=== PATIENT | female | born 1965 | race Caucasian/White ===

== ENCOUNTER 2018-01-22 15:00 | Inpatient (IN) ==
[2018-01-22] MEDS ORDERED: ONDANSETRON 4 MG/2 ML INJECTION IVP ONE (15:07)
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
[2018-01-22] MEDS ORDERED: SALINE FLUSH 10ml SYRINGE IVF PRN (15:40)
[2018-01-22] MEDS: NS 1,000 ML IV SCH ×2 (15:41→17:34)
[2018-01-22 16:42] VITALS: BMI 24.0
[2018-01-22] MEDS ORDERED: WARFARIN - PHARMACY CONSULT MC ONE (16:44)
[2018-01-22] MEDS ORDERED: ACETAMINOPHEN 325 MG TABLET PO PRN (16:45)
[2018-01-22] MEDS ORDERED: ENOXAPARIN 120 MG/0.8 ML INJECTION SQ SCH (16:45)
[2018-01-22] MEDS ORDERED: ONDANSETRON 4 MG/2 ML INJECTION IVP PRN (16:45)
[2018-01-22] MEDS ORDERED: SENNA + DOCUSATE TABLET PO PRN (16:45)
[2018-01-22] MEDS ORDERED: ACETAMINOPHEN 650 MG SUPPOSITORY PR PRN (16:45)
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
[2018-01-22] MEDS ORDERED: FALL RISK - PHARMACY CONSULT MC ONE (17:00)
[2018-01-22] MEDS: 1/2 NS 1,000 ML IV SCH (17:09)
[2018-01-22] MEDS ORDERED: METOPROLOL 5mg/5ml INJECTION IVP PRN (17:11)
[2018-01-22] MEDS: LEVETIRACETAM INJ 500 MG in NS 100 ML IV SCH ×2 (17:31→20:08)
[2018-01-22] MEDS: ENOXAPARIN 150 MG/ML INJECTION SQ SCH (17:37)
[2018-01-22] MEDS ORDERED: WARFARIN 2.5 MG TABLET PO ONE (18:02)
[2018-01-23] MEDS: ENOXAPARIN 150 MG/ML INJECTION SQ SCH ×2 (06:02→17:20)
[2018-01-23] MEDS: 1/2 NS 1,000 ML IV SCH (06:40)
--- NOTE | 2018-01-23 07:31 | XRay Report ---
Indication: seizure, leukocytosis PROCEDURE: XR chest 1V: Encounter: Initial Comparison: None FINDINGS: The lungs are clear. There is no abnormal airspace opacity, pleural effusion or pneumothorax identified. The cardiac silhouette is mildly enlarged. Prior sternotomy and cardiac valve replacement. The pulmonary vasculature and mediastinum are within normal limits. No significant skeletal abnormality is seen. IMPRESSION: No acute pneumonia or congestive failure. Mild enlargement of the cardiac silhouette could be due to cardiomegaly or pericardial effusion. .
--- NOTE | 2018-01-23 07:35 | CT Scan Report ---
Indication: New seizure, on coumadin PROCEDURE: CT head/brain wo con: Encounter: Initial Comparison: October 31, 2015 Technique: Axial CT images through the head were performed without contrast. Iterative Reconstruction dose reducing technique was utilized. FINDINGS: Encephalomalacia in the left frontal lobe and anterior left temporal lobe. The ventricles are of normal size, shape, and contour for the patient's age. There are scattered areas of low attenuation in the white matter which most likely represent changes from chronic microvascular ischemia. The brainstem, cerebellum, and cerebral hemispheres otherwise have a normal morphology and CT attenuation. There is no evidence of midline displacement. No hemorrhage, signs of acute territorial stroke, mass effect, mass lesions, or edema is evident. The visualized portions of the skull base, midface, and calvarium demonstrate no abnormality. Moderate mucosal thickening in the paranasal sinuses with an air-fluid level in the right sphenoid. The tympanic and mastoid cavities appear normal. IMPRESSION: No acute intracranial abnormality or hemorrhage. Sinusitis. There is a preliminary report by [facility]. .
[2018-01-23] MEDS: LEVETIRACETAM INJ 500 MG in NS 100 ML IV SCH ×2 (08:25→21:22)
--- NOTE | 2018-01-23 09:08 | Pharmacy Consult ---
Pharmacy Consult-Warfarin - Laboratory Information 01/22/18 01/22/18 01/22/18 15:17 15:17 15:17 Hgb 10.3 L Hct 34.3 L INR 1.99 H AST 53 H ALT 29 Albumin 4.7 01/23/18 01/23/18 03:59 03:59 Hgb 9.3 L Hct 31.9 L INR 2.00 H AST ALT Albumin - Consult Information COUMADIN CONSULT (Initial): 52 yr old female 5'7" 70 kg admitted to CCU with seizures and altered mentation. In 2016 she suffered from a TBI. She had a heart valve replacement in 2016. She has been on warfarin since the valve replacement. Her home med dose of warfarin is 5 mg daily. She is currently NPO and is on Lovenox 70 mg SQ q12hrs until she is able to resume her oral warfarin. DATE INR DOSE 01/23 2.0 HOLD - pt NPO Pharmacy will continue to monitor the INR and the warfarin will be restarted when pt is able to take her medications orally. Thank you. Amy Dia, PharmD
[2018-01-23] MEDS: D5-1/2NS 1,000 ML IV SCH (10:51)
--- NOTE | 2018-01-23 10:55 | Progress Note ---
- Date 01/23/18 Subjective: Patient lying down in bed at the time of interview. Patient's sister present at bedside. Discussed case with nursing staff, earlier this morning patient pulled out 2 IV lines and had to be placed under soft wrist restraints. At the time of evaluation patient has eyes closed, opens eyes on strong tactile stimuli, has mumbled speech but unable to respond to verbal queries. Patient able to squeeze examiner's fingers on request and able to wiggle toes on instruction. INR 2.0 today. Patient remains nothing by mouth with concern for aspiration and oral Coumadin on hold. We will continue Lovenox 70 mg subcutaneous twice a day. Blood sugar 67, will switch fluids D5 half-normal saline at 50 mL per hour. Objective Vital signs: Temperature 97.6 F 01/23/18 08:00 Pulse Rate 84 01/23/18 10:00 Respiratory Rate 18 01/23/18 10:00 Blood Pressure 148/76 H 01/23/18 10:00 Pulse Oximetry 100 01/23/18 10:00 Height/Weight/BMI: Height 1.7 m Weight 69.7 kg Body Mass Index 24.0 - Additional findings Additional findings: General: Drowsy, lethargic, opens eyes on strong verbal and tactile stimuli. GCS 13 today. Does not appear in significant distress. Head: Pupils equal, round, reactive to light and accommodation. Neck: No elevation in JVP. No pharyngeal erythema noted. Chest: The patient does not use accessory muscles for breathing. Lungs: Breath sounds audible on auscultation bilateral lung jordan. No wheezing , no rhonchi, no crepitations, no crackles. No pleural rub. CVS: S1, S2 heard on auscultation. Normal rate and rhythm. No murmur, no S3/S4 gallops. Abdomen: Soft, nontender, no distention. Bowel sounds appreciated on auscultation. Skin: No rashes, no induration, no erythema. Capillary refill less than 4 seconds. Extremities: No evidence of pedal edema bilateral lower extremities. No calf tenderness bilaterally. Palpable dorsalis pedis and posterior tibial pulses bilateral lower extremities. CRUSHER ASSEMBLER: Patient spontaneously moves all 4 extremities. Noted to have a right-sided facial droop, which is reported to be chronic. Results - Labs CBC & Chem 7: 01/23/18 03:59 01/23/18 03:59 - Imaging and Cardiology CT scan - head Status: image reviewed by me Additional comments: IMPRESSION: No acute intracranial abnormality or hemorrhage. Sinusitis. Encephalomalacia in the left frontal lobe and anterior left temporal lobe. Assessment and Plan (1) New onset seizure Current visit: Yes Status: Acute Assessment and Plan: Assessment Seizure, new onset Meth abuse Encephalopathy; post-ictal Leukocytosis, POA suspect stress rxn Subtherapeutic INR, POA Aortic valve replacement, on Coumadin TBI with chronic right facial droop and right hearing deficit Microcytic anemia, on iron Plan Patient will require continued close monitoring in CCU until she is awake and able to follow commands. Tele, neuro checks q4h. Continue Keppra 500 mg IV BID. GCS 8 on admission, improved to 13. Case discussed with neurologist ammonia still operator, Dr. Ty who will evaluate patient at bedside. Recommendations for EEG, order placed. Also discussed with neurologist about a spinal tap, with patient being on therapeutic doses of Lovenox with history of aortic valve replacement and pre- existing etiology of traumatic brain injury and recent methamphetamine use being suspected for new onset seizures, and decision made to hold off on spinal tap at this point. Ativan PRN seizures, has not required it overnight. Advised against meth use - d/w with graciela who is adamant that she will no longer use it. IVF: Switch to D5 1/2 NS @ 50 ml/hr. Lovenox 1 mg/kg subcutaneous twice a day until INR is therapeutic. Consult pharmacy for Coumadin dosing. Pt takes metoprolol 12.5 mg BID -- will have metoprolol 2.5 mg IV available if BP >180/100 or HR >120. NPO until patient awake and able to follow commands and is not at risk for aspiration. Consult Speech therapy. Oral meds on hold. DC Almodovar once alert and ambulatory. Prior records reviewed. Care to be returned to Kathy Page APRN upon discharge. DVT Prophylaxis: SCD's, Lovenox GI Prophylaxis: Protonix Resuscitation Status: Full Code - Physician Narrative Narrative: Date: 01/23/18 Time: 1052 Hospital Course Summary Disclaimer: The visit summary below is not to be considered part of the above Progress Note. Hospital Course: 01/22/18 Admit to CCU, Dr. Mars attending. Tele, neuro checks q2h. Start Keppra 500 mg IV BID. Consider neuro consult in am. Ativan PRN seizures. Advised against meth use - d/w with graciela who is adamant that she will no longer use it. IVF: 07/05 NS @ 75 ml/hr. Lovenox 1.5 mg/kg/day until INR is therapeutic. Consult pharmacy for Coumadin dosing. Pt takes metoprolol 12.5 mg BID -- will have metoprolol 2.5 mg IV available if BP >180/100 or HR >120. NPO until no longer post ictal and is not at risk for aspiration. Consult Speech therapy. Oral meds on hold. JENY Almodovar once alert and ambulatory.
[2018-01-23] MEDS: ENOXAPARIN 80 MG/0.8 ML INJECTION SQ SCH (17:53)
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
[2018-01-24] MEDS: ENOXAPARIN 80 MG/0.8 ML INJECTION SQ SCH ×2 (05:03→17:04)
[2018-01-24] MEDS: LEVETIRACETAM INJ 500 MG in NS 100 ML IV SCH (08:24)
[2018-01-24] MEDS: D5-1/2NS 1,000 ML IV SCH (08:25)
--- NOTE | 2018-01-24 11:58 | Pharmacy Consult ---
Pharmacy Consult-Warfarin - Laboratory Information 01/22/18 01/22/18 01/22/18 15:17 15:17 15:17 Hgb 10.3 L Hct 34.3 L INR 1.99 H AST 53 H ALT 29 Albumin 4.7 01/23/18 01/23/18 01/24/18 03:59 03:59 04:00 Hgb 9.3 L 10.1 L Hct 31.9 L 34.8 L INR 2.00 H AST ALT Albumin 01/24/18 04:07 Hgb Hct INR 1.96 H AST ALT Albumin - Consult Information COUMADIN CONSULT (Recurring): 52 yr old female 5'7" 70 kg admitted to CCU with seizures and altered mentation. In 2015 she suffered from a TBI. She had a heart valve replacement in 2015. She has been on warfarin 5 mg daily since the valve replacement. The therapeutic range for warfarin for a mechanical heart valve is an INR between 2.5-3.5. She is currently NPO and is on Lovenox 70 mg SQ q12hrs until she is able to resume her oral warfarin. Per the H&P this patient had an INR = 5.2 on 01/20/18 and was instructed not to take anymore warfarin. Her INR was 1.99 at admit 01/22/18. It has remained in that range up to today 01/24 without any warfarin. DATE INR DOSE 01/23 2.0 HOLD - pt NPO 01/24 1.96 will give 3 MG Warfarin today Pharmacy will continue to monitor the INR and the warfarin will be restarted when pt is able to take her medications orally. Thank you. Amy Dia, LucyD
[2018-01-24] MEDS ORDERED: WARFARIN 3 MG TABLET PO SCH (12:00)
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
--- NOTE | 2018-01-24 16:38 | Progress Note ---
- Date 01/24/18 Subjective: Patient resting in bed at the time of interview. Patient's boyfriend present at bedside. Patient awake, alert, oriented 3. Responds appropriately to queries. Does show tendency to occasionally doze off. Has been tolerating oral intake without any difficulty. We will switch Keppra 500 mg by mouth twice a day. EEG performed yesterday by Dr. Ty reported to show "evidence of severe left hemispheric dysfunction. This can be related to brain injury or stroke. There is also evidence of recurrent sharp house activity in the left frontal head region which can increase the patient's risk of seizure activity. There was no evidence of ongoing seizure problem during the recording. The patient can be at risk of having complex partial seizures originating from the left frontal head region". As per nursing staff, patient has been awake, active. Will be transferred from ICU to medical floor. Objective Vital signs: Temperature 98.1 F 01/24/18 14:06 Pulse Rate 92 01/24/18 16:00 Respiratory Rate 22 01/24/18 14:06 Blood Pressure 133/85 01/24/18 14:06 Pulse Oximetry 97 01/24/18 15:58 Height/Weight/BMI: Height 1.7 m Weight 68.4 kg Body Mass Index 24.0 - Additional findings Additional findings: General: Alert, awake, oriented x3. Not in acute distress. Head: Pupils equal, round, reactive to light and accommodation. Extraocular movements intact. Neck: No elevation in JVP. No pharyngeal erythema noted. Chest: The patient does not use accessory muscles for breathing. Lungs: Breath sounds audible on auscultation bilateral lung jordan. No wheezing , no rhonchi, no crepitations, no crackles. No pleural rub. CVS: S1, S2 heard on auscultation. Systolic ejection murmur appreciated in mitral area with mechanical S2. Normal rate and rhythm. Abdomen: Soft, nontender, no distention. Bowel sounds appreciated on auscultation. Skin: No rashes, no induration, no erythema. Capillary refill less than 4 seconds. Extremities: No evidence of pedal edema bilateral lower extremities. No calf tenderness bilaterally. Palpable dorsalis pedis and posterior tibial pulses bilateral lower extremities. 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 Strength 5/5 bilateral upper and lower extremities. Sensations intact. Results - Labs CBC & Chem 7: 01/24/18 04:00 01/24/18 04:00 - ABG Interpretation Additional comments: EEG performed yesterday by Dr. Ty reported to show "evidence of severe left hemispheric dysfunction. This can be related to brain injury or stroke. There is also evidence of recurrent sharp house activity in the left frontal head region which can increase the patient's risk of seizure activity. There was no evidence of ongoing seizure problem during the recording. The patient can be at risk of having complex partial seizures originating from the left frontal head region". 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 We will switch Keppra 500 mg by mouth BID. GCS 8 on admission, improved to 15 today. Case discussed with neurologist data management consultant, Dr. Ty, recommendation to continue Keppra 500 mg by mouth twice a day on discharge and outpatient follow- up in 23 weeks in his office. Ativan PRN seizures, has not required since admission. Advised against meth use Continue D5 1/2 NS @ 50 ml/hr. Lovenox 1 mg/kg subcutaneous twice a day until INR is therapeutic. INR 1.96 today. Consult pharmacy for Coumadin dosing. Continue home medication metoprolol 12.5 mg BID. Speech Therapy evaluated patient. Continue regular diet. DC Almodovar catheter. Prior records reviewed. Care to be returned to Kathy Page APRN upon discharge. DVT Prophylaxis: Lovenox GI Prophylaxis: Protonix Resuscitation Status: Full Code - Physician Narrative Narrative: Date: 01/24/18 Time: 1627 Hospital Course Summary Disclaimer: The visit summary below is not to be considered part of the above Progress Note. Hospital Course: 01/22/18 Admit to CCU, Dr. Mars attending. Tele, neuro checks q2h. Start Keppra 500 mg IV BID. Consider neuro consult in am. Ativan PRN seizures. Advised against meth use - d/w with graciela who is adamant that she will no longer use it. IVF: 1/2 NS @ 75 ml/hr. Lovenox 1.5 mg/kg/day until INR is therapeutic. Consult pharmacy for Coumadin dosing. Pt takes metoprolol 12.5 mg BID -- will have metoprolol 2.5 mg IV available if BP >180/100 or HR >120. NPO until no longer post ictal and is not at risk for aspiration. Consult Speech therapy. Oral meds on hold. DC Almodovar once alert and ambulatory. 01/23/2018 Patient will require continued close monitoring in CCU until she is awake and able to follow commands. Tele, neuro checks q4h. Continue Keppra 500 mg IV BID. GCS 8 on admission, improved to 13. Case discussed with neurologist data management consultant, Dr. Ty who will evaluate patient at bedside. Recommendations for EEG, order placed. Also discussed with neurologist about a spinal tap, with patient being on therapeutic doses of Lovenox with history of aortic valve replacement and pre- existing etiology of traumatic brain injury and recent methamphetamine use being suspected for new onset seizures, and decision made to hold off on spinal tap at this point. Ativan PRN seizures, has not required it overnight. Advised against meth use - d/w with graciela who is adamant that she will no longer use it. IVF: Switch to D5 1/2 NS @ 50 ml/hr. Lovenox 1 mg/kg subcutaneous twice a day until INR is therapeutic. Consult pharmacy for Coumadin dosing. Pt takes metoprolol 12.5 mg BID -- will have metoprolol 2.5 mg IV available if BP >180/100 or HR >120. NPO until patient awake and able to follow commands and is not at risk for aspiration. Consult Speech therapy. Oral meds on hold. DC Almodovar once alert and ambulatory. 01/24/2018 Patient symptomatically improved, will be transferred from ICU to medical floor. We will switch Keppra 500 mg by mouth BID. GCS 8 on admission, improved to 15 today. Case discussed with neurologist data management consultant, Dr. Ty, recommendation to continue Keppra 500 mg by mouth twice a day on discharge and outpatient follow- up in 23 weeks in his office. Ativan PRN seizures, has not required since admission. Advised against meth use Continue D5 1/2 NS @ 50 ml/hr. Lovenox 1 mg/kg subcutaneous twice a day until INR is therapeutic. INR 1.96 today. Consult pharmacy for Coumadin dosing. Continue home medication metoprolol 12.5 mg BID. Speech Therapy evaluated patient. Continue regular diet. DC Almodovar catheter.
[2018-01-24] MEDS: FERROUS GLUCONATE 324 MG TABLET PO SCH (17:04)
[2018-01-24] MEDS: LEVETIRACETAM 500 MG TABLET PO SCH (20:44)
[2018-01-24] MEDS ORDERED: ATORVASTATIN 10 MG TABLET PO SCH (21:00)
[2018-01-25] MEDS: ENOXAPARIN 80 MG/0.8 ML INJECTION SQ SCH ×2 (05:20→16:44)
[2018-01-25] MEDS: PANTOPRAZOLE 40 MG TABLET PO SCH ×2 (05:20→06:52)
[2018-01-25] MEDS: D5-1/2NS 1,000 ML IV SCH (05:23)
--- NOTE | 2018-01-25 07:20 | Pharmacy Consult ---
Pharmacy Consult-Warfarin - Laboratory Information 01/22/18 01/22/18 01/22/18 15:17 15:17 15:17 Hgb 10.3 L Hct 34.3 L INR 1.99 H AST 53 H ALT 29 Albumin 4.7 01/23/18 01/23/18 01/24/18 03:59 03:59 04:00 Hgb 9.3 L 10.1 L Hct 31.9 L 34.8 L INR 2.00 H AST ALT Albumin 01/24/18 01/25/18 04:07 04:32 Hgb Hct INR 1.96 H 1.73 H AST ALT Albumin - Consult Information COUMADIN CONSULT (Recurring): 52 yr old female 5'7" 70 kg admitted to CCU with seizures and altered mentation. In 2015 she suffered from a TBI. She had a heart valve replacement in 2015. She has been on warfarin 5 mg daily since the valve replacement. She is currently NPO and is on Lovenox 70 mg SQ q12hrs as a bridge until her INR is back in therapeutic range. Per the H&P this patient had an INR = 5.2 on 01/20/18 and was instructed not to take anymore warfarin. Her INR was 1.99 at admit 01/22/18. DATE INR DOSE 01/23 2.0 HOLD - pt NPO 01/24 1.96 3 MG 01/25 1.73 Will give 6 MG Warfarin today Pharmacy will continue to monitor the INR and the warfarin will be restarted when pt is able to take her medications orally. Thank you. Amy Dia, LucyD
[2018-01-25] MEDS: LEVETIRACETAM 500 MG TABLET PO SCH (08:48)
[2018-01-25] MEDS: FERROUS GLUCONATE 324 MG TABLET PO SCH (08:49)
[2018-01-25] MEDS ORDERED: WARFARIN 6 MG TABLET PO SCH (12:00)
[2018-01-25 13:09] VITALS: RESP 20
--- NOTE | 2018-01-25 15:28 | Discharge Summary ---
Discharge Information Date of admission: 01/23/18 16:46 Anticipated date of discharge: 01/25/18 Attending Physician: Shreya Mars MD Primary care physician: Kathy Page APRN Consults: 01/23/18 11:09 Physician Consult [CONS] Routine Consulting Provider: Sofiya Ty Reason For Exam: new onset seizures, hx of traumatic brain injury Ordering Provider has Notified Baby Nurse: Yes - Discharge Diagnosis (1) New onset seizure Status: Resolved Methamphetamine use Postictal confusion, resolved Leukocytosis, likely secondary to stress reaction, resolved Subtherapeutic INR, POA History of aortic valve replacement, on Coumadin History of traumatic brain injury with chronic right-sided facial droop and right ear hearing deficit Chronic anemia - Procedures Procedures: EEG performed 01/23/[address] Ty reported to show "evidence of severe left hemispheric dysfunction. This can be related to brain injury or stroke. There is also evidence of recurrent sharp house activity in the left frontal head region which can increase the patient's risk of seizure activity. There was no evidence of ongoing seizure problem during the recording. The patient can be at risk of having complex partial seizures originating from the left frontal head region". - Laboratory Labs: INR 1.73 on 01/25/2018 01/24/18 04:00 01/24/18 04:00 Laboratory Tests 01/22/18 01/22/18 01/22/18 15:17 15:17 15:26 INR 1.99 H Ur Collection Type Urine, cath kasper Urine Color Yellow Urine Clarity Sl cloudy Urine pH 5.5 Ur Specific [place] >=1.030 H Urine Protein Negative Urine Glucose (UA) Negative Urine Ketones 1+ A Urine Occult Blood Trace-intact Urine Nitrate Negative Urine Bilirubin Negative Urine Urobilinogen 0.2 Ur Leukocyte Esterase Negative Urinalysis Comment Microscopic not ind. Urine Opiates Screen Ur Oxycodone Screen Urine Methadone Screen Ur Propoxyphene Screen Ur Barbiturates Screen U Tricyclic Antidepress Ur Phencyclidine Scrn Ur Amphetamines Screen U Methamphetamines Scrn U Benzodiazepines Scrn Urine Cocaine Screen U Cannabinoids Screen Ur Drug Screen Confirm Ur Drug Screen Info Alcohol, Quantitative <10 01/22/18 01/22/18 01/23/18 15:39 15:39 03:59 INR 2.00 H Ur Collection Type Urine Color Urine Clarity Urine pH Ur Specific [place] Urine Protein Urine Glucose (UA) Urine Ketones Urine Occult Blood Urine Nitrate Urine Bilirubin Urine Urobilinogen Ur Leukocyte Esterase Urinalysis Comment Urine Opiates Screen Negative Ur Oxycodone Screen Negative Urine Methadone Screen Negative Ur Propoxyphene Screen Negative Ur Barbiturates Screen Negative U Tricyclic Antidepress Negative Ur Phencyclidine Scrn Negative Ur Amphetamines Screen Positive U Methamphetamines Scrn Positive U Benzodiazepines Scrn Negative Urine Cocaine Screen Negative U Cannabinoids Screen Negative Ur Drug Screen Confirm Sent out Ur Drug Screen Info Pending Alcohol, Quantitative 01/24/18 04:07 INR 1.96 H Ur Collection Type Urine Color Urine Clarity Urine pH Ur Specific [place] Urine Protein Urine Glucose (UA) Urine Ketones Urine Occult Blood Urine Nitrate Urine Bilirubin Urine Urobilinogen Ur Leukocyte Esterase Urinalysis Comment Urine Opiates Screen Ur Oxycodone Screen Urine Methadone Screen Ur Propoxyphene Screen Ur Barbiturates Screen U Tricyclic Antidepress Ur Phencyclidine Scrn Ur Amphetamines Screen U Methamphetamines Scrn U Benzodiazepines Scrn Urine Cocaine Screen U Cannabinoids Screen Ur Drug Screen Confirm Ur Drug Screen Info Alcohol, Quantitative - Radiology Radiology: One view chest x-ray performed on 01/22/2018 IMPRESSION: No acute pneumonia or congestive failure. Mild enlargement of the cardiac silhouette could be due to cardiomegaly or pericardial effusion. CT scan of head without contrast performed on 01/22/2018 IMPRESSION: No acute intracranial abnormality or hemorrhage. Sinusitis. There is a preliminary report by [facility]. History of Present Illness HPI: Nirmala Carnes is a 52 y/o woman being admitted for new onset seizure. History was obtained primarily from patient's fiance, Eric, who has lived with her for the last year. Her mother and sister also contributed to HPI and PMH. Nirmala was obtunded and responsive only to painful stimuli. Eric reports that over the last 3-4 days she's been talking and behaving slightly different, i.e. garbled speech, but he had difficulty explaining the changes. She has been in her usual state of health -- knowing that she had a TBI in 2016 that left her with right hearing loss and right facial droop, forgetfulness; and during her hospitalization for TBI she was diagnosed with an aortic valve dysfunction and underwent mechanical AV replacement in late 2015 for which she takes Coumadin. Family also report that she was supposed to be on Keppra after her TBI but never took it; however, they also deny that she's ever had a seizure before. Eric reports that she has been c/o constipation but otherwise has been doing well. He denies hearing her c/o fever/chills, cough/ congestion, dizziness, weakness, headaches, vision changes, unilateral weakness , chest pain, palpitations, SOA, anxiety, arthralgias, abdominal pain, n/v/d, appetite changes, weight loss, urinary pain, rashes, wounds, syncope, falls, trauma to his knowledge. He reported that they snort meth about 2 times/month. She also drinks a couple drinks of EtOH 5 out of 7 days of the week. She last used meth with him on 01/21/18. She subsequently fell asleep on the couch. He checked on her numerous times during the daytime hours on 01/22/18, but she was snoring. She usually wakes up by 11 am, but she was still sleeping heavy at 1400. He was unable to wake her up. He called 911 and when they arrived she had a generalized seizure after which she vomited and had urinary incontinence. She had a second witnessed seizure as well and was given Ativan 4 mg IV en route to [facility]. CT head was negative for acute events though did show chronic volume loss to left frontotemporal lobe and sinusitis. Labs revealed WBC of 13.1, microcytic anemia with hgb of 10.3, subtherapeutic INR 1.99 (pt was instructed not to hold Coumadin d/t INR of 5.2 on 01/20/18); slightly elevated BUN @ 23 but otherwise electrolytes were unremarkable. UA was neg for UTI. UDS + meth. She was given IVF bolus. She remained unresponsive in the ED. A kasper was inserted. Dr. Mars was contacted and the patient was admitted to the CCU for new-onset sz. Objective Vital signs: Temperature 97.6 F 01/25/18 12:00 Pulse Rate 81 01/25/18 12:00 Respiratory Rate 20 01/25/18 12:00 Blood Pressure 135/82 01/25/18 12:00 Pulse Oximetry 97 01/25/18 14:50 Height/Weight/BMI: Height 1.7 m Weight 68.3 kg Body Mass Index 24.0 - Additional findings Additional findings: General: Alert, awake, oriented x3. Not in acute distress. Head: Pupils equal, round, reactive to light and accommodation. Extraocular movements intact. Neck: No elevation in JVP. No pharyngeal erythema noted. Chest: The patient does not use accessory muscles for breathing. Lungs: Breath sounds audible on auscultation bilateral lung jordan. No wheezing , no rhonchi, no crepitations, no crackles. No pleural rub. CVS: S1, S2 heard on auscultation. Systolic ejection murmur appreciated in mitral area with mechanical S2. Normal rate and rhythm. Abdomen: Soft, nontender, no distention. Bowel sounds appreciated on auscultation. Skin: No rashes, no induration, no erythema. Capillary refill less than 4 seconds. Extremities: No evidence of pedal edema bilateral lower extremities. No calf tenderness bilaterally. Palpable dorsalis pedis and posterior tibial pulses bilateral lower extremities. 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 Strength 5/5 bilateral upper and lower extremities. Sensations intact. Hospital Course This is a general summary of the patient's hospital course. For more details refer to the complete medical record. Hospital course: 01/22/18 Admit to CCU. Tele, neuro checks q2h. Start Keppra 500 mg IV BID. Consider neuro consult in am. Ativan PRN seizures. Advised against meth use - d/w with graciela who is adamant that she will no longer use it. IVF: 1/2 NS @ 75 ml/hr. Lovenox 1.5 mg/kg/day until INR is therapeutic. Consult pharmacy for Coumadin dosing. Pt takes metoprolol 12.5 mg BID -- will have metoprolol 2.5 mg IV available if BP >180/100 or HR >120. NPO until no longer post ictal and is not at risk for aspiration. Consult Speech therapy. Oral meds on hold. JENY Kasper once alert and ambulatory. 01/23/2018 Patient will require continued close monitoring in CCU until she is awake and able to follow commands. Tele, neuro checks q4h. Continue Keppra 500 mg IV BID. GCS 8 on admission, improved to 13. Case discussed with neurologist telecommunications clerk, Dr. Ty who will evaluate patient at bedside. Recommendations for EEG, order placed. Also discussed with neurologist about a spinal tap, with patient being on therapeutic doses of Lovenox with history of aortic valve replacement and pre- existing etiology of traumatic brain injury and recent methamphetamine use being suspected for new onset seizures, and decision made to hold off on spinal tap at this point. Ativan PRN seizures, has not required it overnight. Advised against meth use - d/w with graciela who is adamant that she will no longer use it. IVF: Switch to D5 1/2 NS @ 50 ml/hr. Lovenox 1 mg/kg subcutaneous twice a day until INR is therapeutic. Consult pharmacy for Coumadin dosing. Pt takes metoprolol 12.5 mg BID -- will have metoprolol 2.5 mg IV available if BP >180/100 or HR >120. NPO until patient awake and able to follow commands and is not at risk for aspiration. Consult Speech therapy. Oral meds on hold. DC Kasper once alert and ambulatory. 01/24/2018 Patient symptomatically improved, will be transferred from ICU to medical floor. We will switch Keppra 500 mg by mouth BID. GCS 8 on admission, improved to 15 today. Case discussed with neurologist telecommunications clerk, Dr. Ty, recommendation to continue Keppra 500 mg by mouth twice a day on discharge and outpatient follow- up in 23 weeks in his office. Ativan PRN seizures, has not required since admission. Advised against meth use Continue D5 1/2 NS @ 50 ml/hr. Lovenox 1 mg/kg subcutaneous twice a day until INR is therapeutic. INR 1.96 today. Consult pharmacy for Coumadin dosing. Continue home medication metoprolol 12.5 mg BID. Speech Therapy evaluated patient. Continue regular diet. DC Kasper catheter. 01/25/2018 Patient awake, alert, oriented 3 today. Responds to questions appropriately. Patient worked with physical therapy this morning and PT recommendations for disposition home with home health. Patient also verbalized interest on substance abuse assessment for her needs with the telephonic case manager, Ms. Bateman. Patient's boyfriend present at bedside, reports that him and patient will stop street drug use. Patient verbalizes agreement. Discussed with patient about Keppra 500 mg by mouth twice a day on discharge and follow-up with neurology. INR 1.73 today, patient will be discharged on Coumadin 5 mg by mouth daily at home along with Lovenox 70 mg subcutaneous twice a day. Nursing staff informed to instruct patient on injecting subcutaneous Lovenox. Patient will require repeat INR testing on 01/27/2018, will require Lovenox injection until INR therapeutic. Time spent with patient: discharge greater than 30 minutes Resuscitation Status: Full Code Discharge Plan - Discharge Disposition Discharge Date: 01/25/18 Disposition: 86 Home Health Service *Condition: Stable Reason For Visit (Visit label in EMR): New onset Seizures - Discharge Medications *Discharge Medications: New Enoxaparin Sodium [Lovenox] 70 mg SQ Q12H #6 syringe Levetiracetam [Keppra] 500 mg PO BID #60 tab Continue Atorvastatin [Lipitor] 10 mg PO HS Warfarin [Coumadin] 5 mg PO 1700 [id number]/Sod Sulf,Bicarb,Cl/KCl [Colyte with Flavor Packets] 1 dose PO PRN PRN PRN Reason: Prn Orders Ferrous Gluconate 324 mg PO BID Metoprolol Tartrate [Lopressor] 12.5 mg PO BID - Discharge Packet/Instructions *Diet: Soft Cardiac diet with thin liquids *Activity: As recommended by physical therapy. Continue following up with home health. *Pain Management/Treatment: Acetaminophen 500 mg by mouth every 6 hours as needed *Wound Care: Not applicable Additional Instructions: Patient will require repeat INR testing on 01/27/2018, will require Lovenox injection until INR therapeutic. *Expected Signs/Symptoms: Continued symptomatic improvement. *Notify Physician if: Fever, chills, increased shortness of breath, intractable nausea, vomiting, abdominal pain, chest pain, palpitations, dizziness, blurred vision, diarrhea, fatigue, weakness, flank pain, dysuria, black tarry stools, bright red blood per rectum or any other concerning findings. *During Business Hours Contact: PCP, Kathy Calixto *After Business Hours Contact: Call [facility] at [phone] and ask that the on-call physician be paged *Pending Lab/Results: Follow up w/your PCP - Referrals/Follow Up *Referrals/Follow Up: Sofiya Ty MD [Physician] - 2 Weeks (New onset seizures, on Keppra.) Kathy Page APRN [Primary Care Provider] - 3 Days (Monitor INR, discontinue Lovenox once INR therapeutic.) - Patient Handouts Patient Handouts: Epilepsy (GEN) - Dismissal Complete Discharge Instructions are:: Complete Physician Narrative - Narrative Attestation Narrative: Date: 01/25/18 Time: 7346
[2018-01-25 15:58] VITALS: BP 146/75; TEMP 97.1; O2SAT 96
[2018-01-25 16:58] VITALS: PULSE 80
== END 2018-01-25 17:15 | disposition home health service (06) | DRG 100 ==
LOC: EDHOLD 15:00 → ED 15:00 → EDHOLD 16:30 → CCU 16:38 → MED 01-24 14:34
PROVIDERS: ADMIT Internal Medicine; ATTEND Internal Medicine